=== PATIENT | female | born 1985 | race Caucasian/White ===

== ENCOUNTER 2021-05-06 07:28 | Emergency (ER) | payer OTHER ==
[~2021-05-06] VITALS: Ht 170.2 cm; Wt 84.1 kg
[2021-05-06 07:51] VITALS: BP 119/78
[2021-05-06] MEDS ORDERED: CYCL-1 PO (09:22)
[2021-05-06] MEDS ORDERED: ketorolac trometh. 30mg/ml inj. IM ONE (09:25)
== END 2021-05-06 09:56 | disposition home or self-care (01) ==
LOC: ER 07:29
DX: S29.012A Strain of muscle and tendon of back wall of thorax, initial encounter (principal); Z79.899 Other long term (current) drug therapy; X50.0XXA Overexertion from strenuous movement or load, initial encounter; Y93.89 Activity, other specified; Y92.89 Other specified places as the place of occurrence of the external cause; Y99.0 Civilian activity done for income or pay
CPT/HCPCS: 96372; 99283; J1885